=== PATIENT | female | born 1970 | race Caucasian/White ===

== ENCOUNTER → 2016-03-10 | Outpatient (REF) | payer OTHER ==
[~2016-03-10] MED LIST: BUTA-198 PO; BUTACAP78 PO; CEFT500T3 PO; COLA100C PO; LISI-538 PO; LISI20TA PO; MAPA325T2 PO; NORT25CA2 PO; NORV5TAB PO; PILO1OPD OD; SENN-22 PO
[2016-03-10 14:18] LABS: BASO % 0.5 % (0.0-1.0); EOS % 1.2 % (0.0-3.0); LARGE UNSTAINED CELL # 0.1 K/mm3 (0.0-0.4); LARGE UNSTAINED CELL % 2.8 % (0.0-4.0); LYMPH # 1.6 K/mm3 (1.5-4.5); LYMPH % 42.4 % (24.0-44.0); MEAN CORPUSCULAR HEMOGLOBIN 30.3 pg (27.0-33.0); MEAN CORPUSCULAR HGB CONC 34.1 g/dl (32.0-36.5); MEAN CORPUSCULAR VOLUME 88.8 fl (80.0-96.0); MONO # 0.2 K/mm3 (0.0-0.8); MONO % 5.7 % (0.0-5.0); NEUTROPHILS # 1.8 K/mm3 (1.8-7.7); NEUTROPHILS % 47.4 % (36.0-66.0); PLATELET COUNT, AUTOMATED 338 k/mm3 (150-450); RED CELL DISTRIBUTION WIDTH 12.4 % (11.5-14.5); WHITE BLOOD COUNT 3.8 K/mm3 (4.0-10.0)
[2016-03-10 14:20] LABS: VITAMIN B12 LEVEL 473 PG/ML
[2016-03-10 14:33] LABS: FOLATE > 24.0 NG/ML
[2016-03-10 14:41] LABS: FREE T4 0.94 NG/DL (0.76-1.46); PERCENT SATURATION 55.9 % (13.2-37.4); TOTAL IRON BINDING CAPACITY 279 UG/DL (250-450)
== END ==
LOC: M LABDRAW1 13:07
PROVIDERS: ATTEND Physician Assistant Medical
DX: R53.83 Other fatigue (principal)

== ENCOUNTER → 2017-02-17 | Outpatient (REF) | payer OTHER | LOC: M LABNEURO 09:50 | DX: R20.2 Paresthesia of skin (principal) ==

== ENCOUNTER → 2017-02-17 | Outpatient (REF) | payer OTHER ==
[2017-02-17 13:46] LABS: ANION GAP 7 MEQ/L (8-16); BLOOD UREA NITROGEN 21 MG/DL (7-18); C REACTIVE PROTEIN QUANTITATIV < 0.30 MG/DL (0.00-0.30); CALCIUM LEVEL 8.8 MG/DL (8.5-10.1); CARBON DIOXIDE LEVEL 27 MEQ/L (21-32); CHLORIDE LEVEL 108 MEQ/L (98-107); CHOLESTEROL LEVEL 185 MG/DL (<200); CHOLESTEROL RISK RATIO 3.854 (<5); CREATININE FOR GFR 0.62 MG/DL (0.55-1.02); GLOMERULAR FILTRATION RATE > 60.0 (>58); GLUCOSE, FASTING 104 MG/DL (70-105); HDL CHOLESTEROL 48 MG/DL (>40); LDL CHOLESTEROL 111.8 MG/DL (<100); NON-HDL-C 137 MG/DL; POTASSIUM SERUM 4.4 MEQ/L (3.5-5.1); RHEUMATOID FACTOR QUANT < 10.0 IU/ML (0-15.0); SODIUM LEVEL 142 MEQ/L (136-145); TRIGLYCERIDES LEVEL 126 MG/DL (<150); URIC ACID 6.2 MG/DL (2.6-6.0)
[2017-02-17 13:56] LABS: TOTAL 25(OH) VITAMIN D 27.1 NG/ML (30.0-100.0)
[2017-02-17 14:02] LABS: PTT LUPUS TYPE ANTICOAG SCREEN 0.9 (0-1.2)
[2017-02-17 17:16] LABS: ERYTHROCYTE SEDIMENTATION RATE 5 mm/hr (0-20)
[2017-02-18 14:21] LABS: ANTINUCLEAR ANTIBODIES DIRECT Negative (Negative); Lyme Disease IgG/IgM Antibodie <0.91 ISR (0.00-0.90); Lyme Disease IgM Ab Quantitati <0.80 index (0.00-0.79)
== END ==
LOC: M LABNEURO 09:53
DX: M25.50 Pain in unspecified joint (principal); I10 Essential (primary) hypertension

== ENCOUNTER → 2018-06-22 | Outpatient (CLI) | payer OTHER ==
[~2018-06-22] MED LIST changes: -COLA100C PO; +COLA100C5 PO; +ISOP1SOL OD; -PILO1OPD OD
[2018-06-22 08:17] LABS: BASO % 0.8 % (0.0-1.0); EOS % 1.1 % (0.0-3.0); HEMATOCRIT 42.8 % (36.0-47.0); HEMOGLOBIN 14.6 g/dl (12.0-15.5); LYMPH # 1.5 10^3/uL (1.5-4.5); LYMPH % 41.4 % (24.0-44.0); MEAN CORPUSCULAR HEMOGLOBIN 31.3 pg (27.0-33.0); MEAN CORPUSCULAR HGB CONC 34.1 g/dl (32.0-36.5); MEAN CORPUSCULAR VOLUME 91.6 fl (80.0-96.0); MONO # 0.3 10^3/uL (0.0-0.8); NEUTROPHILS # 1.8 10^3/uL (1.8-7.7); NEUTROPHILS % 47.7 % (36.0-66.0); PLATELET COUNT, AUTOMATED 260 10^3/uL (150-450); RED BLOOD COUNT 4.67 10^6/uL (4.00-5.40); WHITE BLOOD COUNT 3.7 10^3/uL (4.0-10.0)
[2018-06-22 08:47] LABS: ALBUMIN 4.1 GM/DL (3.2-5.2); ALT/SGPT 20 U/L (12-78); BILIRUBIN,TOTAL 0.4 MG/DL (0.2-1.0); BLOOD UREA NITROGEN 18 MG/DL (7-18); CALCIUM LEVEL 8.6 MG/DL (8.5-10.1); CARBON DIOXIDE LEVEL 27 MEQ/L (21-32); CHLORIDE LEVEL 109 MEQ/L (98-107); CHOLESTEROL LEVEL 162 MG/DL (<200); CHOLESTEROL RISK RATIO 3.521 (<5); CREATININE FOR GFR 0.72 MG/DL (0.55-1.30); GLOMERULAR FILTRATION RATE > 60.0 (>58); GLUCOSE, FASTING 92 MG/DL (70-100); HDL CHOLESTEROL 46 MG/DL (>40); LDL CHOLESTEROL 101 MG/DL (<100); NON-HDL-C 116 MG/DL; POTASSIUM SERUM 4.4 MEQ/L (3.5-5.1); SODIUM LEVEL 141 MEQ/L (136-145); TOTAL PROTEIN 6.5 GM/DL (6.4-8.2); TRIGLYCERIDES LEVEL 77 MG/DL (<150)
== END ==
LOC: M LAB 07:54
PROVIDERS: ATTEND Physician Assistant Medical
DX: I10 Essential (primary) hypertension (principal)

== ENCOUNTER 2021-12-02 09:37 | Inpatient (IN) | payer OTHER ==
[~2021-12-02] VITALS: Ht 170.2 cm; Wt 78.9 kg
[~2021-12-02 09:37] MED LIST changes: -LISI-538 PO; -LISI20TA PO; +LISI20TA33 PO; +LISI20TA35 PO; -MAPA325T2 PO; +MAPA325T8 PO
[2021-12-02] MEDS ORDERED: BUPR150T12 PO (09:47)
[2021-12-02] MEDS ORDERED: NS 1,000 ML IV ONE (11:40)
[2021-12-02] MEDS ORDERED: ONDANSETRON 4MG 2ML VIAL IV ONE (11:40)
[2021-12-02 11:45] LABS: BASO % 0.2 % (0.0-1.0); EOS % 0.1 % (0.0-3.0); HEMATOCRIT 45.6 % (36.0-47.0); HEMOGLOBIN 15.8 g/dl (12.0-15.5); LYMPH # 1.4 10^3/uL (1.5-5.0); LYMPH % 8.9 % (24.0-44.0); MEAN CORPUSCULAR HEMOGLOBIN 31.5 pg (27.0-33.0); MEAN CORPUSCULAR HGB CONC 34.6 g/dl (32.0-36.5); MONO # 0.8 10^3/uL (0.0-0.8); MONO % 4.9 % (2.0-8.0); NEUTROPHILS # 13.4 10^3/uL (1.5-8.5); NEUTROPHILS % 85.5 % (36.0-66.0); PLATELET COUNT, AUTOMATED 311 10^3/uL (150-450); RED BLOOD COUNT 5.01 10^6/uL (4.00-5.40); WHITE BLOOD COUNT 15.7 10^3/uL (4.0-10.0)
[2021-12-02] MEDS ORDERED: MORPHINE 2 MG/ML 1ML VIAL IV ONE (11:45)
[2021-12-02 12:07] LABS: INR 0.97; PARTIAL THROMBOPLASTIN TIME 25.5 SECONDS (24.8-34.2); PROTHROMBIN TIME 13.1 SECONDS (12.5-14.5)
[2021-12-02 12:27] LABS: ALT/SGPT 24 U/L (12-78); BILIRUBIN,DIRECT 0.2 MG/DL (0.0-0.2); BILIRUBIN,TOTAL 0.7 MG/DL (0.2-1.0); BLOOD UREA NITROGEN 13 MG/DL (7-18); CALCIUM LEVEL 8.9 MG/DL (8.5-10.1); CARBON DIOXIDE LEVEL 25 MEQ/L (21-32); CHLORIDE LEVEL 107 MEQ/L (98-107); CREATININE FOR GFR 0.82 MG/DL (0.55-1.30); GLOMERULAR FILTRATION RATE > 60.0 (>51); GLUCOSE, FASTING 112 MG/DL (70-100); LIPASE 108 U/L (73-393); POTASSIUM SERUM 3.9 MEQ/L (3.5-5.1); SODIUM LEVEL 138 MEQ/L (136-145); TOTAL PROTEIN 7.3 GM/DL (6.4-8.2)
[2021-12-02] MEDS: GASTROGRAFIN SOLUTION 30ML PO SCH ×2 (12:39→12:41)
[2021-12-02] MEDS ORDERED: ISOVUE-370 76% 100ML VIAL As Ordered ONE (13:23)
[2021-12-02] MEDS ORDERED: NS 1,000 ML IV SCH (16:25)
[2021-12-02] MEDS ORDERED: MORPHINE 4 MG/ML 1ML VIAL/SYRINGE IV ONE (16:25)
[2021-12-02] MEDS ORDERED: ACETAMINOPHEN 325 MG TAB PO ONE (16:25)
[2021-12-02] MEDS ORDERED: LOPERAMIDE 2 MG CAPLET PO PRN (18:20)
[2021-12-02] MEDS ORDERED: MORPHINE 2 MG/ML 1ML VIAL IV PRN (18:20)
[2021-12-02] MEDS ORDERED: GI COCKTAIL 50ML BTL(HYOSCYAMINE/MAALOX/LIDOCAINE VISCOUS)(1:3:1) PO ONE (18:20)
[2021-12-02] MEDS ORDERED: EXCETAB32 PO (18:21)
[2021-12-02] MEDS ORDERED: AMLO1TAB24 PO (18:21)
[2021-12-02] MEDS ORDERED: BUPR300T92 PO (18:21)
[2021-12-02] MEDS ORDERED: ACET650T3 PO (18:21)
[2021-12-02] MEDS ORDERED: LISI20TA33 PO (18:21)
[2021-12-02] MEDS ORDERED: HOME MED LIST COMPLETE! XX SCH (18:25)
[2021-12-02] MEDS: NS 1,000 ML IV SCH (20:02)
[2021-12-02] MEDS: ACETAMINOPHEN TAB 650MG DOSE (2X325MG) PO PRN (22:28)
[2021-12-02 23:32] LABS: HEMATOCRIT 38.6 % (36.0-47.0); HEMOGLOBIN 13.2 g/dl (12.0-15.5)
[2021-12-03 04:05] VITALS: BP 139/87
[2021-12-03 06:00] VITALS: BP 136/86
[2021-12-03 06:41] LABS: BASO % 0.3 % (0.0-1.0); EOS # 0.1 10^3/uL (0.0-0.5); EOS % 0.4 % (0.0-3.0); HEMATOCRIT 40.2 % (36.0-47.0); HEMOGLOBIN 13.5 g/dl (12.0-15.5); LYMPH # 1.4 10^3/uL (1.5-5.0); LYMPH % 11.6 % (24.0-44.0); MEAN CORPUSCULAR HEMOGLOBIN 30.9 pg (27.0-33.0); MEAN CORPUSCULAR HGB CONC 33.6 g/dl (32.0-36.5); MONO # 0.7 10^3/uL (0.0-0.8); MONO % 5.6 % (2.0-8.0); NEUTROPHILS # 9.9 10^3/uL (1.5-8.5); NEUTROPHILS % 81.9 % (36.0-66.0); PLATELET COUNT, AUTOMATED 254 10^3/uL (150-450); RED BLOOD COUNT 4.37 10^6/uL (4.00-5.40); WHITE BLOOD COUNT 12.2 10^3/uL (4.0-10.0)
[2021-12-03 07:15] LABS: ALT/SGPT 17 U/L (12-78); BILIRUBIN,TOTAL 0.5 MG/DL (0.2-1.0); BLOOD UREA NITROGEN 8 MG/DL (7-18); CALCIUM LEVEL 7.7 MG/DL (8.5-10.1); CARBON DIOXIDE LEVEL 24 MEQ/L (21-32); CHLORIDE LEVEL 108 MEQ/L (98-107); GLOMERULAR FILTRATION RATE > 60.0 (>51); GLUCOSE, FASTING 98 MG/DL (70-100); MAGNESIUM LEVEL 2.2 MG/DL (1.8-2.4); POTASSIUM SERUM 3.6 MEQ/L (3.5-5.1); SODIUM LEVEL 139 MEQ/L (136-145); TOTAL PROTEIN 5.7 GM/DL (6.4-8.2)
[2021-12-03] MEDS: NS 1,000 ML IV SCH ×4 (08:34→23:35)
[2021-12-03] MEDS: buPROPion **XL** TABLET 150MG (WELLBUTRIN XL) PO SCH (08:43)
[2021-12-03] MEDS: ACETAMINOPHEN TAB 650MG DOSE (2X325MG) PO PRN ×2 (08:44→12:57)
[2021-12-03] MEDS: amLODIPine 5 MG TAB PO SCH (08:46)
[2021-12-03] MEDS: CIPROFLOXACIN 400 MG in IV 1 EA IV SCH ×2 (08:49→20:56)
[2021-12-03 09:52] LABS: CLOSTRIDIUM DIFFICILE PCR NEGATIVE (NEGATIVE)
[2021-12-03] MEDS: metroNIDAZOLE 500 MG in IV 1 EA IV SCH ×2 (10:08→17:41)
[2021-12-03] MEDS ORDERED: KETOROLAC 30 MG/ML 1ML VIAL IV ONE (13:40)
[2021-12-03 14:00] VITALS: BP 113/72
[2021-12-03 20:58] VITALS: BP 133/83
[2021-12-03] MEDS ORDERED: PANTOPRAZOLE 40MG TAB (PROTONIX) PO SCH (21:00)
[2021-12-04] MEDS: metroNIDAZOLE 500 MG in IV 1 EA IV SCH ×2 (01:28→09:39)
[2021-12-04 06:00] VITALS: BP 109/69
[2021-12-04] MEDS: buPROPion **XL** TABLET 150MG (WELLBUTRIN XL) PO SCH (08:29)
[2021-12-04] MEDS: CIPROFLOXACIN 400 MG in IV 1 EA IV SCH (08:29)
[2021-12-04] MEDS: amLODIPine 5 MG TAB PO SCH (08:29)
[2021-12-04 08:30] VITALS: BP 120/78
[2021-12-04] MEDS ORDERED: CIPR-249 PO (09:46)
[2021-12-04] MEDS ORDERED: METR-265 PO (09:46)
== END 2021-12-04 12:21 | disposition home or self-care (01) | DRG 249 ==
LOC: M ED 09:37 → M ED INP 17:32 → ENRESERV 12-03 03:02 → M MSPAV 12-03 04:15
PROVIDERS: ADMIT Family Medicine; ATTEND Internal Medicine Nephrology
DX: A09 Infectious gastroenteritis and colitis, unspecified (principal); I10 Essential (primary) hypertension; D72.829 Elevated white blood cell count, unspecified; Z20.822 Contact with and (suspected) exposure to COVID-19; Z79.899 Other long term (current) drug therapy; K21.9 Gastro-esophageal reflux disease without esophagitis; F32.A Depression, unspecified; G61.0 Guillain-Barre syndrome

== ENCOUNTER → 2022-05-02 | Outpatient (CLI) | payer OTHER ==
[~2022-05-02] MED LIST changes: +ACET650T3 PO; +AMLO1TAB24 PO; +BUPR150T12 PO; +BUPR300T92 PO; +CIPR-249 PO; +EXCETAB32 PO; +METR-265 PO
== END ==
LOC: M RAD 16:01
PROVIDERS: ATTEND Physician Assistant
DX: S93.402A Sprain of unspecified ligament of left ankle, initial encounter (principal); X58.XXXA Exposure to other specified factors, initial encounter; Y92.89 Other specified places as the place of occurrence of the external cause; Y93.89 Activity, other specified; Y99.8 Other external cause status

== ENCOUNTER → 2023-04-24 | Outpatient (CLI) | payer OTHER ==
[2023-04-24 12:24] LABS: BASO # 0.1 10^3/uL (0.0-0.2); BASO % 0.9 % (0.0-1.0); EOS % 0.6 % (0.0-3.0); HEMATOCRIT 42.8 % (36.0-47.0); HEMOGLOBIN 14.3 g/dl (12.0-15.5); LYMPH # 2.1 10^3/uL (1.5-5.0); LYMPH % 39.8 % (24.0-44.0); MEAN CORPUSCULAR HEMOGLOBIN 31.1 pg (27.0-33.0); MEAN CORPUSCULAR HGB CONC 33.4 g/dl (32.0-36.5); MONO # 0.5 10^3/uL (0.0-0.8); MONO % 8.4 % (2.0-8.0); NEUTROPHILS # 2.7 10^3/uL (1.5-8.5); NEUTROPHILS % 50.3 % (36.0-66.0); PLATELET COUNT, AUTOMATED 350 10^3/uL (150-450); WHITE BLOOD COUNT 5.4 10^3/uL (4.0-10.0)
[2023-04-24 12:40] LABS: ALBUMIN 3.9 G/DL (3.2-5.2); ALKALINE PHOSPHATASE 64 U/L (46-116); ALT/SGPT 19 U/L (7.0-40); AST/SGOT 10 U/L (<34); BILIRUBIN,TOTAL 0.5 MG/DL (0.3-1.2); BLOOD UREA NITROGEN 21 MG/DL (9-23); CARBON DIOXIDE LEVEL 27 MMOL/L (20-31); CHLORIDE LEVEL 108 MMOL/L (98-107); CHOLESTEROL LEVEL 157 MG/DL (<200); CREATININE FOR GFR 0.71 MG/DL (0.55-1.30); GLOMERULAR FILTRATION RATE > 60.0 (>51); GLUCOSE, FASTING 91 MG/DL (60-100); HDL CHOLESTEROL 50.5 MG/DL (>40); LDL CHOLESTEROL 93.9 MG/DL (<100); NON-HDL-C 106.5 MG/DL; POTASSIUM SERUM 4.6 MMOL/L (3.5-5.1); SODIUM LEVEL 139 MMOL/L (136-145); TOTAL PROTEIN 6.6 G/DL (5.7-8.2); TRIGLYCERIDES LEVEL 63 MG/DL (<150)
[2023-04-24 12:41] LABS: TOTAL 25(OH) VITAMIN D 20.3 NG/ML (20.0-100.0)
== END ==
LOC: M LAB 11:18
PROVIDERS: ATTEND Nurse Practitioner Family
DX: I10 Essential (primary) hypertension (principal); E55.9 Vitamin D deficiency, unspecified

== ENCOUNTER → 2023-05-18 | Outpatient (CLI) | payer OTHER | LOC: M WHC 14:27 | PROVIDERS: ATTEND Nurse Practitioner Family | DX: M85.852 Other specified disorders of bone density and structure, left thigh (principal); Z82.62 Family history of osteoporosis ==